=== PATIENT | female | born 1970 | race Caucasian/White ===

== ENCOUNTER 2019-07-24 05:00 | Day surgery (SDC) | payer MEDICAID ==
[2019-07-23 09:10] LABS: HEMATOCRIT 46.8 % (36.0-48.0); HEMOGLOBIN 15.7 g/dL (12-16); MCH 31.1 pg (26.0-34.0); MCHC 33.5 g/dL (31.0-37.0); MCV 92.7 fL (80.0-100.0); MEAN PLATELET VOLUME 10.4 fL (7.4-10.4); RBC 5.05 10x6/uL (4.00-5.40); RDW 12.9 % (11.5-14.5); WBC 7.2 10x3/uL (4.8-10.8)
[~2019-07-24] VITALS: Ht 152.4 cm; Wt 63.5 kg
[~2019-07-24 05:00] MED LIST: BUPROPION HCL100 M1 PO; FISH OIL 1,0001 CA1 PO; MINOCIN50 MG PO; VALTREX1000 MG PO; VITAMIN D250000 UNIT PO
[2019-07-24 06:13] VITALS: BP 117/73; Ht 152.4 cm; Wt 63.5 kg
--- NOTE | 2019-07-24 07:49 | NUR ---
ICE APPLIED TO L.FOOT AND ELEVATED WRITTEN ORDER AND POST OP SHOE IN PLACE.
--- NOTE | 2019-08-21 08:17 | OP ---
PATIENT NAME: PEYTON MITTAL MEDICAL RECORD: [id number] :72 LOCATION:[facility] ADMISSION DATE: SURGEON: SOM FREIRE DPM DATE OF OPERATION: 07/24/2019 PREOPERATIVE DIAGNOSIS: Spur, medial left hallux. POSTOPERATIVE DIAGNOSIS: Spur, medial left hallux. PROCEDURE: Removal of spur, medial left hallux. ANESTHESIA: Local with IV sedation. HEMOSTASIS: Left ankle tourniquet at 250 mmHg. PREOPERATIVE DETAILS: The patient was taken to the OR and placed in the operating table in a supine position. This was followed by induction of general anesthesia and infiltration of local anesthetic. The left extremity was then prepped and draped in usual aseptic technique followed by exsanguination and inflation of tourniquet. A 15 blade was used to create a 2.5 cm linear incision over the dorsomedial aspect of the left hallux. The incision was deepened down through subcutaneous tissue to the bone. The medial aspect of the distal phalanx was exposed. Sagittal saw was used to resect the enlarged bone and a nice smooth surface was noted. The rough areas were rasped smooth. The wound was flushed. Deep tissue was reapproximated with 2-0 Vicryl, the subcutaneous tissue with 4-0 Rapide and the skin was closed with 4-0 Rapide in a subcuticular technique followed by Dermabond. Adaptic, 4 x 4 and Conform were used to dress the wound followed by Coban. Tourniquet was deflated. POSTOPERATIVE DETAILS: The patient tolerated the procedure well and left the OR with vital signs stable and vascular status at preoperative levels. The patient was transported to recovery per anesthesia in stable condition. 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
== END 2019-07-24 09:04 | disposition home or self-care (01) ==
LOC: D.OPS 05:00 → D.PAN 07:00 → D.OPS 07:00
PROVIDERS: Anesthesiology; ATTEND Podiatrist
DX: M77.8 Other enthesopathies, not elsewhere classified (principal)